=== PATIENT | female | born 1985 | race Caucasian/White ===

== ENCOUNTER 2016-07-31 11:09 | Emergency (ER) | payer SELFPAY ==
--- NOTE | 2016-07-31 11:33 | EDM.PDOC ---
ED HPI GENERAL MEDICAL PROBLEM - General Chief Complaint: Abdominal Pain Stated Complaint: ABDOMINAL INCIDENT/CLOT IN LEFT LEG Time Seen by Provider: 07/31/16 11:12 - History of Present Illness INITIAL COMMENTS - FREE TEXT/NARRATIVE: HISTORY AND PHYSICAL: History of present illness: Patient 31-year-old white female presents 2 weeks status post tummy talk also is history of deep venous thrombosis in left leg and is currently on eliquis. Patient presents now with discomfort in the incisional region and felt that this intermittent swelling in her she denies fever chills nausea, she also states she has continued left leg pain she has been compliant with her medications. She does have history of benzodiazepine abuse Review of systems: As per history of present illness and below otherwise all systems reviewed and negative. Past medical history: As per history of present illness and as reviewed below otherwise noncontributory. Surgical history: As per history of present illness and as reviewed below otherwise noncontributory. Social history: No reported history of drug or alcohol abuse. Family history: As per history of present illness and as reviewed below otherwise noncontributory. Physical exam: HEENT: Atraumatic, normocephalic, pupils reactive, negative for conjunctival pallor or scleral icterus, mucous membranes moist, throat clear, neck supple, nontender, trachea midline. Lungs: Clear to auscultation, breath sounds equal bilaterally, chest nontender. Heart: S1S2, regular, negative for clicks, rubs, or JVD. Abdomen: Soft, nondistended, incisional tenderness with no discharge no erythema no warmth no fluctuance no significant induration Negative for masses or hepatosplenomegaly. Negative for costovertebral tenderness. Pelvis: Stable nontender. Genitourinary: Deferred. Rectal: Deferred. Extremities: Atraumatic, negative for cords mild tenderness to palpation neurovascular exam unremarkable Neuro: Awake, alert, oriented. Cranial nerves II through XII unremarkable. Cerebellum unremarkable. Motor and sensory unremarkable throughout. Exam nonfocal. Diagnostics: CBC CMP Therapeutics: None Impression: #1 observation 2 weeks status post abdominoplasty with postoperative pain #2 history of DVT left leg Definitive disposition and diagnosis as appropriate pending reevaluation and review of above. Abdominal Pain Score (Numeric/FACES): 9 Left Lower Leg Pain Score (Numeric/FACES): 9 - Related Data Allergies Allergy/AdvReac Type Severity Reaction Status Date / Time ketorolac tromethamine Allergy Hives Verified 10/30/15 13:01 [From Toradol] metoclopramide HCl Allergy Hives Verified 10/30/15 13:01 [From Reglan] prochlorperazine Allergy Hives Verified 10/30/15 13:01 [From Compazine] Home Meds: Home Meds ALPRAZolam [Xanax] 2 mg PO BID PRN 05/11/15 [History] QUEtiapine Fumarate [Seroquel] 400 mg PO BEDTIME 05/11/15 [History] Divalproex Sodium [Depakote ER] 500 mg PO BID 09/27/15 [History] Apixaban [Eliquis] 07/31/16 [History] Past Medical History HEENT History: Reports: None Cardiovascular History: Reports: None, Blood clots/VTE/DVT Respiratory History: Reports: None Gastrointestinal History: Reports: None Genitourinary History: Reports: None CONTRACT LEAD History: Reports: Musculoskeletal History: Reports: None Neurological History: Reports: Migraines, Seizure Psychiatric History: Reports: Anxiety, Depression Endocrine/Metabolic History: Reports: None Hematologic History: Reports: None Immunologic History: Reports: None Oncologic (Cancer) History: Reports: None Dermatologic History: Reports: None - Infectious Disease History Infectious Disease History: Reports: Chicken pox, Shingles - Past Surgical History HEENT Surgical History: Reports: Adenoidectomy, Myringotomy w tube(s), Tonsillectomy GI Surgical History: Reports: Other (see below) Other GI Surgeries/Procedures: "tummy tuck" Female Surgical History: Reports: section Dermatological Surgical History: Reports: Plastic surgical reconstruction/repair Social & Family History - Family History Family Medical History: Noncontributory - Tobacco Use Smoking Status *Q: Never Smoker Second Hand Smoke Exposure: No - Recreational Drug Use Recreational Drug Use: No ED ROS GENERAL - Review of Systems Review Of Systems: ROS reveals no pertinent complaints other than HPI. ED EXAM, GENERAL - Physical Exam Exam: See Below (See dictation) Course - Vital Signs Last Recorded V/S: Last Vital Signs Temp 36.7 C 07/31/16 11:19 Pulse 100 07/31/16 11:19 Resp 20 07/31/16 11:19 BP 134/71 07/31/16 11:19 Pulse Ox 95 07/31/16 11:19 - Orders/Labs/Meds Orders: Active Orders 24 hr Category Date Time Status CBC WITH AUTO DIFF [HEME] Stat Lab 07/31/16 11:19 Ordered COMPREHENSIVE METABOLIC PN,CMP [CHEM] Stat Lab 07/31/16 11:19 Ordered Departure - Departure Time of Disposition: 11:32 Disposition: Home, Self-Care 01 Condition: good Clinical Impression: Postoperative pain, Deep venous thrombosis Forms: ED Department Discharge Additional Instructions: The following information is given to patients seen in the emergency department who are being discharged to home. This information is to outline your options for follow-up care. We provide all patients seen in our emergency department with a follow-up referral. The need for follow-up, as well as the timing and circumstances, are variable depending upon the specifics of your emergency department visit. If you don't have a primary care physician on staff, we will provide you with a referral. We always advise you to contact your personal physician following an emergency department visit to inform them of the circumstance of the visit and for follow-up with them and/or the need for any referrals to a consulting specialist. The emergency department will also refer you to a specialist when appropriate. This referral assures that you have the opportunity for followup care with a specialist. All of these measure are taken in an effort to provide you with optimal care, which includes your followup. Under all circumstances we always encourage you to contact your private physician who remains a resource for coordinating your care. When calling for followup care, please make the office aware that this follow-up is from your recent emergency room visit. If for any reason you are refused follow-up, please contact the [facility] emergency department at and asked to speak to the emergency department charge nurse. Continue Current medications follow up primary medical doctor and surgeon as discussed return as needed as discussed - My Orders Last 24 Hours: My Active Orders 07/31/16 11:19 CBC WITH AUTO DIFF [HEME] Stat COMPREHENSIVE METABOLIC PN,CMP [CHEM] Stat - Assessment/Plan Last 24 Hours: My Active Orders 07/31/16 11:19 CBC WITH AUTO DIFF [HEME] Stat COMPREHENSIVE METABOLIC PN,CMP [CHEM] Stat
[2016-07-31 12:07] LABS: CHLORIDE,CL 105 mmol/L (98-110); SODIUM,NA 137 mmol/L (136-146)
[2016-07-31 13:55] VITALS: BP 116/68
== END 2016-07-31 13:06 | disposition home or self-care (01) ==
LOC: MW.ED 11:09
DX: G89.18 Other acute postprocedural pain (principal); I82.4Z2 Acute embolism and thrombosis of unspecified deep veins of left distal lower extremity; Z98.890 Other specified postprocedural states; F41.8 Other specified anxiety disorders; Z88.6 Allergy status to analgesic agent; Z88.8 Allergy status to other drugs, medicaments and biological substances
CPT/HCPCS: 36415; 80053; 85025; 99283; 99284